=== PATIENT | male | born 1965 | race Caucasian/White ===

== ENCOUNTER 2016-12-11 10:32 | Emergency (ER) | payer BC, OTHER ==
[2016-12-11 11:22] VITALS: BP 131/90
--- OUTSIDE RECORDS SUMMARY | 2016-12-11 11:29 | XMS REPORT | CCD ---
:1965 Author Name HE OQUENDO Address [address] [facility] Unavailable [place], [place] [id number] Care Team Providers Name Role Phone JUSTIN CHARLES Attending Physician Unavailable Vital Signs Vital Sign Value Unit Date/Time Recent/Initial? Weight Measured 229.5 lbs 01/11/2016 10:00 Initial VS Height 69 in 01/11/2016 10:00 Initial VS BMI (Body Mass Index) 33.89 kg/m^2 01/11/2016 10:00 Initial VS BSA (Body Surface Area) 2.25 m^2 01/11/2016 10:00 Initial VS Allergies Allergy Code Allergy Type Reaction Status No Known Allergies 0 No known allergies Active Procedures Procedure Code Procedure Type Date Excision of Rectum, Via Natural or Artificial [id number] ICD-10 PCS 01/11/2016 Opening Endoscopic, Diagnost Excision of Sigmoid Colon, Via Natural or [id number] ICD-10 PCS 01/11/2016 Artificial Opening Endoscopic, D History of Immunizations Unknown or Not Available. Problems Unknown or Not Available. Results PATHOLOGICAL TISSUE REQUEST, [facility] - Collect Date/Time: 01/11/2016 12:05 Test Name Code Test Result Test Units Test Ref Range Clinical Information SEE COMMENT: N/A Active Medications Unknown or Not Available. Medications Administered During Visit Unknown or Not Available. Encounters Encounter Diagnosis Diagnosis Code Start Date Encounter for screening for malignant neoplasm of colon [id number] 01/11/2016 Social History Smoking Status Code Start Date End Date Never smoker [id number] Patient Decision Aids Patient Decision Aid HC Colorectal Polyps Discharge Instructions You were admitted to [facility] on 01/11/2016 09:34 with a principal diagnosis of Encounter for screening for malignant neoplasm of colon You had the following procedures done:Excision of Rectum, Via Natural or Artificial Opening Endoscopic, DiagnostExcision of Sigmoid Colon, Via Natural or Artificial Opening Endoscopic, D You had the following tests done:PATHOLOGICAL TISSUE REQUEST, [facility] You were discharged from [facility] on 01/11/2016 12:16 Should you have any questions prior to discharge, please contact a member of your healthcare team. If you have left the hospital and have any questions, please contact your primary care physician. Chief Complaint and Reason For Visit Unknown or Not Available. Function Status Unknown or Not Available. Plan of Care Unknown or Not Available. Referral/Transition of Care Unknown or Not Available.
--- OUTSIDE RECORDS SUMMARY | 2016-12-11 11:29 | XMS REPORT | CCD ---
:1965 Author Name JUSTIN COWAN Address [address] [facility] Unavailable [place], [place] [id number] Care Team Providers Name Role Phone SATISH JEAN MD Attending Physician Unavailable SATISH JEAN MD Er Physician 1 Unavailable Vital Signs Vital Sign Value Unit Date/Time Recent/Initial? Weight Measured 230 lbs 03/19/2015 00:29 Initial VS Height 69 in 03/19/2015 00:29 Initial VS BMI (Body Mass Index) 33.96 kg/m^2 03/19/2015 00:29 Initial VS BSA (Body Surface Area) 2.25 m^2 03/19/2015 00:29 Initial VS Allergies Allergy Code Allergy Type Reaction Status No Known Allergies 0 No known allergies Active Procedures Unknown or Not Available. History of Immunizations Unknown or Not Available. Problems Unknown or Not Available. Results COMPREHENSIVE METABOLIC PANEL - Collect Date/Time: 03/19/2015 00:50 Test Name Code Test Result Test Units Test Ref Range GLUCOSE 96 mg/dL L=74 H=106 SODIUM 140 mmol/L L=136 H=145 POTASSIUM 4.1 mmol/L L=3.5 H=5.1 CHLORIDE 104 mmol/L L=98 H=107 CO2 29 mmol/L L=21 H=32 BUN 21.0 mg/dL L=7.0 H=18.0 CREATININE 1.2 mg/dL L=0.8 H=1.3 BUN/CREAT 17.5 L=7.6 H=21.2 CALCIUM 8.6 mg/dL L=8.6 H=10.1 TOTAL BILI 0.4 mg/dL L=0.2 H=1.0 TOTAL PROTEIN 7.3 g/dL L=6.4 H=8.2 ALBUMIN 3.6 g/dL L=3.4 H=5.0 A/G RATIO 1.0 ALKALINE PHOS 106 IU/L L=50 H=136 AST/SGOT 30 IU/L L=15 H=37 ALT/SGPT 55 IU/L L=12 H=78 ANION GAP 11.3 mmol/L L=7.0 H=16.0 AGE 49 YEARS GFR 68.40 ml/min RAPID URINE DRUG SCREEN - Collect Date/Time: 03/19/2015 00:50 Test Name Code Test Result Test Units Test Ref Range CANNABINOIDS (THC) NEGATIVE N/A NORMAL:Negative OPIATES NEGATIVE N/A NORMAL:Negative AMPHETAMINES NEGATIVE N/A NORMAL:Negative COCAINE NEGATIVE N/A NORMAL:Negative TRICYCLIC ANTIDEPRES NEGATIVE N/A NORMAL:Negative BARBITURATES NEGATIVE N/A NORMAL:Negative METHADONE NEGATIVE N/A NORMAL:Negative BENZODIAZEPINES NEGATIVE N/A NORMAL:Negative PROPOXYPHENE NEGATIVE N/A NORMAL:Negative METHAMPHETAMINE NEGATIVE N/A NORMAL:Negative CBC W/DIFF - Collect Date/Time: 03/19/2015 00:50 Test Name Code Test Result Test Units Test Ref Range WBC 6690-2 6.0 K/uL L=3.2 H=10.0 RBC 789-8 5.28 M/uL L=4.30 H=5.70 HEMOGLOBIN 718-7 16.3 g/dL L=13.6 H=17.1 HEMATOCRIT 45.6 % L=40.0 H=52.0 MCV 86.4 fL L=81.0 H=101 MCH 30.9 PG L=26.0 H=38.0 MCHC 35.7 G/DL L=31.0 H=37.0 RDW-SD 39.8 FL L=37.0 H=54.0 RDW-CV 13.0 % L=11.0 H=16.0 PLATELETS 186 K/UL L=140 H=380 MPV 9.3 FL L=9.0 H=13.0 %GRAN 47.4 % L=0.0 H=75.0 %LYMPH 25.5 % L=0.0 H=50.0 %MONO 18.0 % L=0.0 H=14.0 %EOS 8.6 % L=0.0 H=6.0 %BASO 0.5 % L=0.0 H=1.0 #GRAN 2.82 K/UL L=1.80 H=7.80 #LYMPH 1.52 K/UL L=0.30 H=4.00 #MONO 1.07 K/UL L=0.00 H=0.70 #EOS 0.51 K/UL L=0.00 H=0.40 #BASO 0.03 K/UL L=0.00 H=0.10 SLIDE REVIEWED? NOT INDICATED N/A MANUAL DIFF NOT INDICATED N/A UA W/MICROSCOPIC EXAM - Collect Date/Time: 03/19/2015 00:50 Test Name Code Test Result Test Units Test Ref Range COLOR UR Yellow N/A NORMAL:YELLOW CLARITY UR Clear N/A NORMAL:CLEAR SP GRAV UR 1.025 N/A NORMAL:1.000-1.030 PH UR 6.5 N/A NORMAL:5.0-8.5 PROTEIN UR Negative N/A NORMAL:NEGATIVE GLUCOSE UR Negative N/A NORMAL:NEGATIVE KETONE UR Negative N/A NORMAL:NEGATIVE BILIRUBIN UR Negative N/A NORMAL:NEGATIVE BLOOD UR 2+ N/A NORMAL:NEGATIVE LEUK UR Negative N/A NORMAL:NEGATIVE NITRITE UR Negative N/A NORMAL:NEGATIVE MICRO SEE BELOW N/A RBC/hpf 15 N/A NORMAL:0-5/hpf WBC/hpf 2 N/A NORMAL:0-10/hpf EPI UR 5-10 N/A NORMAL:NONE SEEN BACTERIA UR FEW N/A NORMAL:NONE SEEN MUCOUS FEW/LPF N/A NORMAL:NONE SEEN CAST NONE SEE N/A CRYSTALS NONE SEE N/A CULTURE? NO N/A HELICOBACTER PYLORI AB IGG - Collect Date/Time: 03/19/2015 00:50 Test Name Code Test Result Test Units Test Ref Range HELICOBACTER PYLORI AB(IGG) NEGATIVE N/A NEGATIVE Active Medications No Active Medications Medications Administered During Visit Unknown or Not Available. Encounters Encounter Diagnosis Diagnosis Code Start Date UNSPEC GASTRITIS & GASTRODUODENITIS 14745 03/19/2015 Social History Smoking Status Code Start Date End Date Never smoker [id number] Patient Decision Aids Unknown or Not Available. Discharge Instructions You were admitted to [facility] on 03/19/2015 with a principal diagnosis of UNSPEC GASTRITIS & GASTRODUODENITIS. You had the following tests done:HELICOBACTER PYLORI AB(IGG) You were discharged from [facility] on 03/19/2015. Should you have any questions prior to discharge, please contact a member of your healthcare team. If you have left the hospital and have any questions, please contact your primary care physician. Chief Complaint and Reason For Visit Chief Complaint Date of Onset NOT FEELING GOOD Function Status Unknown or Not Available. Plan of Care Unknown or Not Available. Referral/Transition of Care Unknown or Not Available.
--- OUTSIDE RECORDS SUMMARY | 2016-12-11 11:29 | XMS REPORT | Continuity of Care Document ---
:1965 Author Organization [facility] ([facility]) Address [address] [place] [address] Phone [phone] Care Team Providers Name Role Phone Sid Solorio Primary Care Provider [phone] Source Comments This disclosure is being made pursuant to the Care Everywhere program, applicable federal and state laws, and may not contain all informaitonavailable regarding this patient.[facility] ([facility]) Active Allergies and Adverse Reactions No Known Allergies Current Medications No known medications Active Problems Not on file Social History Tobacco Use Types Packs/Day Years Used Date Never Assessed Last Filed Vital Signs Vital Sign Reading Time Taken Blood Pressure 147/95 01/25/2010 8:41 AM CDT Pulse 79 01/25/2010 8:41 AM CDT Temperature 36.8 C (98.2 F) 01/25/2010 8:41 AM CDT Respiratory Rate - - Height 1.75 m (5' 8.9") 01/25/2010 8:41 AM CDT Weight 98.158 kg (216 lb 6.4 oz) 01/25/2010 8:41 AM CDT Body Mass Index 32.05 01/25/2010 8:41 AM CDT Oxygen Saturation - - Plan of Care Health Maintenance Due Date Last Done Comments Hepatitis B Vaccine (1 of 3 - Primary Series) 1965 Tdap Vaccine 1976 Lipid Disorder Screening 12/04/1983 MMR Vaccine 12/04/1983 Td Vaccine 12/04/1983 Colonoscopy 2015 Prostate Cancer Screening 12/04/2015 Influenza Vaccine: Seasonal (#1) 04/02/2016 Results from Last 3 Months Not on file
--- NOTE | 2016-12-11 11:50 | ERNOTE ---
Medical Problem HPI - General Chief Complaint: Laceration Time Seen by Provider: 12/11/16 10:47 Source: patient Exam Limitations: no limitations - Immun/Allergies/Home Medications Immunizations: IMMUNIZATION HX Immunizations Up to Date Yes History of Influenza Vaccine No Hx Pneumococcal Vaccination No Allergies/Adverse Reactions: Allergies No Known Allergies Allergy (Unverified 12/11/16 10:45) Home Medications: HOME MEDICATIONS NK [No Home Medication] 12/11/16 [Last Taken Unknown] - History of Present History Narrative: Patient was at work and got his right index finger caught in between 2 pieces of metal producing a laceration contusion of distal phalanx of the right index finger. Describes the pain as moderate. Timing: constant Severity: moderate Review of Systems - Review of Systems Constitutional: Present: See HPI EYE: Present: no symptoms reported ENT: Present: no symptoms reported Respiratory: Present: no symptoms reported Cardiology: Present: no symptoms reported Gastrointestinal/Abdominal: Present: no symptoms reported Genitourinary: Present: no symptoms reported Musculoskeletal: Present: See HPI Skin: Present: no symptoms reported Neurological: Present: no symptoms reported Endocrine: Present: no symptoms reported Hematologic/Lymphatic: Present: no symptoms reported Psych: Present: no symptoms reported - Patient's Past Medical History Patient History - Medical: No pertinent hx Patient History - Cardiac/Respiratory: No pertinent hx Patient History - Cancer: No Hx of Cancer Patient History - Surgical Procedures: No surgical history Patient History - Other: None - Social History Living Situations: home Abuse History: No History of abuse Psych History: No pertinent hx Smoking Status: Never smoker Alcohol Use: none Drug Use: none - Immunizations Immunizations Up to Date: Yes Hx Pneumococcal Vaccination: No History of Influenza Vaccine: No Physical Exam - Physical Exam General Appearance: Present: wd/wn, alert, moderate distress Eye Exam: Normal inspection: bilateral, PERRL: bilateral Ears, Nose, Throat: Present: normal ENT inspection, H, normal pharynx Neck: Present: normal inspection, nontender Respiratory: Present: no respiratory distress, normal breath sounds, no accessory muscle use, chest nontender, lungs clear Cardiovascular/Chest: Present: regular rate, rhythm, no murmur, normal peripheral pulses Gastrointestinal/Abdominal: Present: normal bowel sounds, nontender, nondistended, soft, no organomegaly Rectal Exam: Present: deferred Back Exam: Present: normal inspection, normal range of motion Extremity Exam: Present: normal range of motion, other - 3 cm laceration to the right index finger Neurological Exam: Present: alert, oriented, normal mood/affect Skin Exam: Present: normal color, warm/dry Lymphatic Exam: Present: no adenopathy ED Progress - Vital Signs Patient's Vital Signs:: I have reviewed the patient's vital signs. Vital Signs: Vital Signs 12/11/16 12/11/16 10:46 11:21 Temperature 36.4 C L Pulse Rate 51 L 65 Respiratory 17 14 Rate Blood Pressure 136/91 131/90 O2 Sat by Pulse 93 97 Oximetry - X-Ray X-Ray #1 X-Ray: finger Interpretation: Reviewed by me - Progress/Reassessment Chief Complaint: Laceration Procedures Right Finger 2nd Digit Anesthesia: 1% Lidocaine, Digital Block I & D Prep: betadine prep, sterile drapes applied Wound's Depth/Shape: into subcutaneous Wound Explored: clean Wound Intervention: irrigated w/saline Distal NVT: neuro/vasc intact Suture Size/Type: 4-0 Number of Sutures: 7 Layer Closure: Simple Wound Dressing: sterile dressing applied Complications: Pt spencer procedure well Plan - Plan Plan: The sutures will be removed in 10 days. Patient was given instructions on keeping the wound cleaned and dry. Bacitracin was applied while the patient was in the ER. Departure - Departure Clinical Impression: Laceration Disposition: Home self-care Condition: Good Instructions: Laceration Care, Adult, [id number] Referrals: Sid Solorio [Primary Care Provider] -
== END 2016-12-11 11:50 | disposition home or self-care (01) ==
LOC: ER 10:32
PROC: 0JQJ0ZZ Repair Right Hand Subcutaneous Tissue and Fascia, Open Approach (ICD-10-PCS; principal; 2016-12-11)
DX: S61.210A Laceration without foreign body of right index finger without damage to nail, initial encounter (principal); X58.XXXA Exposure to other specified factors, initial encounter; Y93.9 Activity, unspecified; Y92.63 Factory as the place of occurrence of the external cause; Y99.0 Civilian activity done for income or pay